=== PATIENT | female | born 1950 ===

== ENCOUNTER 2017-11-04 10:53 | Day surgery (SDC) | payer OTHER ==
[~2017-11-04] VITALS: Ht 162.6 cm; Wt 58.8 kg
[~2017-11-04 10:53] MED LIST: PRED20
[2017-11-04] MEDS ORDERED: SIMV40 PO (11:37)
[2017-11-04] MEDS ORDERED: TRIA50 PO (11:38)
== END 2017-11-04 14:20 | disposition home or self-care (01) ==
LOC: ORSCSDS 10:53
PROVIDERS: Internal Medicine Gastroenterology
PROC: 0DBE8ZX Excision of Large Intestine, Via Natural or Artificial Opening Endoscopic, Diagnostic (ICD-10-PCS; principal; 2017-11-04 12:00)
DX: K50.10 Crohn's disease of large intestine without complications (principal); K57.30 Diverticulosis of large intestine without perforation or abscess without bleeding; I10 Essential (primary) hypertension; E78.5 Hyperlipidemia, unspecified; Z79.52 Long term (current) use of systemic steroids
CPT/HCPCS: 87493; 88305; J7120